=== PATIENT | male | born 1980 | race Caucasian/White ===

== ENCOUNTER 2022-03-21 15:24 | Inpatient (IN) | payer MEDICAID, SELFPAY ==
[2022-03-21 15:24] VITALS: BP 154/108; PULSE 78; RESP 18; TEMP 36.9; O2SAT 98
[2022-03-21 15:27] VITALS: BMI 23.5
[2022-03-21 15:46] LABS: Glucose Point of Care 337 mg/dL (70-110)
[2022-03-21] MEDS: carvedilol 25 mg Tablet PO (17:14)
[2022-03-21] MEDS: simethicone 80 mg Chew PO (17:14)
[2022-03-21] MEDS: BuSPIRONE 10 mg Tablet 15 MG PO (17:14)
[2022-03-21] MEDS: FUROsemide 40 mg Tablet PO (17:14)
[2022-03-21] MEDS: insulin lispro 100 unit/1 mL SUBCUT ×2 (18:22→21:04)
[2022-03-21 19:54] LABS: Glucose Point of Care 460 mg/dL (70-110)
[2022-03-21 20:48] VITALS: BP 144/90; PULSE 80; RESP 16; TEMP 36.4; O2SAT 97
[2022-03-21] MEDS: OLANZapine 5 mg ODT PO (21:03)
[2022-03-21] MEDS: quetiapine 100 mg Tablet 200 MG PO (21:03)
[2022-03-21] MEDS: gabapentin 300 mg Capsule PO (21:03)
[2022-03-21] MEDS: atorvastatin 40 mg Tablet PO (21:04)
--- NOTE | 2022-03-22 01:14 | PC.NURSE ---
PRN ADMIN Patient c/o of anxiety and had been agitated with nursing staff, requested something to help him calm down . PRN Zydis given as ordered with noted effectiveness.
[2022-03-22 06:00] VITALS: BP 123/84; PULSE 77; RESP 17; TEMP 36.5; O2SAT 99
[2022-03-22 06:29] LABS: Glucose Point of Care 302 mg/dL (70-110)
[2022-03-22] MEDS: meloxicam 7.5 mg tablet 15 MG PO (07:54)
[2022-03-22] MEDS: insulin lispro 100 unit/1 mL SUBCUT ×3 (07:54→17:31)
[2022-03-22] MEDS: simethicone 80 mg Chew PO ×2 (07:55→17:33)
[2022-03-22] MEDS: citalopram 20 mg Tablet 40 MG PO (07:55)
[2022-03-22] MEDS: gabapentin 300 mg Capsule PO ×3 (07:55→21:37)
[2022-03-22] MEDS: aspirin 81 mg EC Tablet PO (07:55)
[2022-03-22] MEDS: BuSPIRONE 10 mg Tablet 15 MG PO ×2 (07:56→17:32)
[2022-03-22] MEDS: FUROsemide 40 mg Tablet PO ×2 (07:57→17:32)
[2022-03-22] MEDS: insulin glargine 100 units/1 mL 15 UNIT SUBCUT (07:58)
[2022-03-22] MEDS: carvedilol 25 mg Tablet PO ×2 (07:58→17:34)
[2022-03-22 11:06] LABS: Glucose Point of Care 568 mg/dL (70-110)
[2022-03-22 11:15] LABS: Basophils % 0.6 %; Eosinophils # 0.1 10^3/uL (0.0-0.8); Eosinophils % 1.4 %; Hematocrit 33.6 % (42.0-52.0); Hemoglobin 10.5 g/dL (11.7-16.6); Lymphocytes # 1.6 10^3/uL (0.8-4.8); Lymphocytes % 23.4 %; Mean Corpuscular HGB Conc 31.3 g/dL (30.0-36.0); Mean Corpuscular Hemoglobin 26.6 pg (28.0-34.0); Mean Corpuscular Volume 85.1 fl (80-94); Mean Platelet Volume 10.8 fL (7.4-10.4); Monocytes # 0.5 10^3/uL (0.2-0.9); Monocytes % 8.2 %; Neutrophils # 4.36 10^3/uL (1.8-7.7); Neutrophils % 65.9 %; Nucleated Red Blood Cells % 0 %; Platelet Count 359 10^3/cmm (130-400); Red Blood Count 3.95 10^6/uL (4.1-5.3); Red Cell Distribution Width 14.6 % (12.1-15.1); White Blood Count 6.6 10^3/uL (4.0-10.0)
[2022-03-22 11:36] LABS: Anion Gap 12.6 (5-19); Blood Urea Nitrogen 21 mg/dL (6-20); Calcium 8.9 mg/dL (8.5-10.5); Carbon Dioxide 27 mmol/L (22-29); Chloride 97 mmol/L (98-107); Glomerular Filtration Rate 74.5 mL/min (90-130); Osmolality Calculated 305 mOsm/kg (285-295); Potassium 4.6 mmol/L (3.5-5.1); Sodium 132 mmol/L (136-145)
[2022-03-22 11:39] LABS: Glucose 607 mg/dL (65-115)
[2022-03-22 14:00] VITALS: BP 100/60; PULSE 83; RESP 16; TEMP 36.4; O2SAT 95
--- NOTE | 2022-03-22 14:09 | P.NPUHP_ITS ---
Providers/Chief Complaint Admitting Physician: Manpreet Jordan MD Chief Complaint: Psych HPI NPU History of Present Illness Stan Collazo is a 41 year old male who presented to the outside hospital with reports of struggling with type 1 diabetes, polysubstance abuse, coronary artery disease, anemia, and hypertension with suicidal ideation. He was endorsing worsening stressors in life and people not wanting him around. He is about jumping out of traffic to kill himself. Ultimately after significant dif ficulties to stabilize his blood sugar he was transferred to [facility] and admitted to the neuropsychiatric unit for definitive treatment of those issues. Upon admission he had significant blood sugar difficulties and hospitalist consult was requested for appropriate management of his medical comorbidities. He was a fairly poor historian and was not on much more than yes no answers to this engineering writer's questions. He was also somewhat somnolent and challenging to continue to arouse to get additional answers. He did endorse having significant psychiatric history with multiple inpatient hospitalizations in the past but none at this facility. He reports that suicidal ideation is generally the reason for him presenting. He endorses smoke about half pack of cigarettes a day but denied any additional active addiction. He is currently on medication. Review of the chart of the outside hospital does identify methamphetamine being positive on his UDS, as likely is leading to his level of hypersomnolence. He did have moments of unresponsiveness and did briefly get into the outside hospital. Psychiatric history: As above. Substance abuse history: As above. Due to continued irritability and difficulty with arousal additional history was not obtained. Meds NPU Home Medications Medication Instructions Recorded Confirmed Last Taken Type aspirin 81 mg tablet,delayed 81 mg PO DAILY 03/21/22 03/21/22 Unknown History release atorvastatin 40 mg tablet 40 mg PO BEDTIME 03/21/22 03/21/22 Unknown History buspirone 15 mg tablet 15 mg PO BID 03/21/22 03/21/22 Unknown History carvedilol 25 mg tablet 25 mg PO BID 03/21/22 03/21/22 Unknown History citalopram 40 mg tablet 40 mg PO DAILY 03/21/22 03/21/22 Unknown History furosemide 40 mg tablet 40 mg PO BID 03/21/22 03/21/22 Unknown History gabapentin 300 mg capsule 300 mg PO TID 03/21/22 03/21/22 Unknown History insulin glargine 100 unit/mL 15 unit SUBCUT DAILY 03/21/22 03/21/22 Unknown History subcutaneous solution (Lantus U-100 Insulin) meloxicam 15 mg tablet 15 mg PO DAILY 03/21/22 03/21/22 Unknown History quetiapine 200 mg tablet 200 mg PO BEDTIME 03/21/22 03/21/22 Unknown History simethicone 80 mg chewable tablet 80 mg PO BID 03/21/22 03/21/22 Unknown History Allergies Allergy/AdvReac Type Severity Reaction Status Date / Time amoxicillin Allergy ALGY-Hives Verified 03/21/22 16:21 tramadol Allergy ALGY-Hives Verified 03/21/22 16:21 PFSH NPU PFSH: Medical History (Updated 03/24/22 @ 08:27 by Manpreet Jordan MD) History of coronary artery disease History of placement of stent in LAD coronary artery Hypertension Type 1 diabetes mellitus Surgical History (Updated 03/22/22 @ 16:24 by Boni Momin MD) History of appendectomy History of cardiac catheterization Family History (Updated 03/22/22 @ 16:25 by Boni Momin MD) Mother Diabetes Social History (Updated 03/22/22 @ 16:25 by Boni Momin MD) Second hand smoke exposure: No Alcohol intake: never Substance/Drug Use: current Mental Status Exam MSE Comments: Is a well-nourished well-developed white male in scrubs with limited grooming and eye contact. No abnormal movements. Except for significant psychomotor retardation. Mostly uncooperative with exam in mild to moderate distress. Speech was limited and decreased rate and volume. Mood desc ribed as fine affect irritable. Thought process organized. Thought content: Patient denied homicidal ideation but endorsed suicidal ideation, there are no delusions reported or noted, he denied any auditory or visual hallucinations. Attention and concentration were limited and memory was unreliable for the most part but none were formally tested. He is arousable and oriented x3. Insight and judgment impaired impulse control impaired. Vitals/I&O/Wt Last Vital Signs Temp 97.5 F L 03/22/22 14:00 Pulse 83 03/22/22 14:00 Resp 16 03/22/22 14:00 BP 100/60 03/22/22 14:00 Pulse Ox 95 03/22/22 14:00 Weight last 48 hrs Weight 68.039 kg Data NPU : 03/22/22 11:07 03/22/22 11:07 A&P Assessment and plan (1) Hypertension: Status: Acute (2) History of coronary artery disease: Status: Acute (3) Type 1 diabetes mellitus: Status: Acute (4) Suicidal ideations: Status: Acute (5) Methamphetamine use disorder, severe: Status: Acute (6) Depression: Status: Acute Plan This is a 41-year-old white male with a long history of mental health and addiction issues who presents with significant morbidities and difficulties with his blood sugars endorsing suicidality with limited interaction. 1. Continue current medication. We will attempt to assess his adherence to medication and whether medication changes are in order or whether this is more to do with his methamphetamine addiction. 2. Continue every 15 minute checks for safety. 3. Encourage individual, group and milieu therapies. 4. Encourage sober living treatment after discharge at the highest level of care to which he is willing to commit. Involuntary Hold Information 96 Hour Hold: 96 Hour Involuntary Admission: No Attestations NPU Medical Necessity Statement*: Inpatient hospitalization is medically necessary and the clinically appropriate intervention at this time. We will monitor medication to make changes as indicated. Patient will be in the hospital for over two midnights. Likely length of stay 3 to 5 days. Coding Level of Care Code Acute Electrician Control Equipment for Pina Moncada Diagnoses Hypertension I10 History of coronary artery disease Z86.79 Type 1 diabetes mellitus E10.9 Suicidal ideations R45.851 Methamphetamine use disorder, severe F15.20 Depression F32.A
[2022-03-22 16:20] LABS: Glucose Point of Care 240 mg/dL (70-110)
--- NOTE | 2022-03-22 16:21 | PM.CONSULT ---
Providers/Reason For Consult Consulting Physician/Specialty*: Dr. Jordan Reason for Consult*: Type 1 diabetes mellitus Attending Physician: Manpreet Jordan MD History of Present Illness History of Present Illness Stan Collazo is a 41 year old male with a past medical history of type 1 diabetes mellitus, history of CAD status post stenting to LAD, history of methamphetamine abuse, history of suicidal ideation, who is a transfer to neuropsychiatric unit from outside hospital. Hospitalist team was called for diabetes management. At outside facility patient had a significant hypoglycemic event, blood sugars in the low 30s, with associated seizures and unresponsiveness requiring intubation mechanical ventilation, successfully extubated, he was managed with a sliding scale with Lantus 15 units once daily. Currently his blood sugars are over 500, his A1c was over 18 at outside facility. Recheck blood sugar is in the 240s, he is alert oriented following all commands. When I talk to him about his type 1 diabetes, he tells me he does not care about his diabetes and wants to be left alone,. Denies any polyuria, polydipsia, polyphagia. No lightheadedness, no dizziness. He has no complaints just wants to be left alone becomes very agitated on further questioning Medications/Allergies Home Medications Medication Instructions Recorded Confirmed Last Taken Type aspirin 81 mg tablet,delayed 81 mg PO DAILY 03/21/22 03/21/22 Unknown History release atorvastatin 40 mg tablet 40 mg PO BEDTIME 03/21/22 03/21/22 Unknown History buspirone 15 mg tablet 15 mg PO BID 03/21/22 03/21/22 Unknown History carvedilol 25 mg tablet 25 mg PO BID 03/21/22 03/21/22 Unknown History citalopram 40 mg tablet 40 mg PO DAILY 03/21/22 03/21/22 Unknown History furosemide 40 mg tablet 40 mg PO BID 03/21/22 03/21/22 Unknown History gabapentin 300 mg capsule 300 mg PO TID 03/21/22 03/21/22 Unknown History insulin glargine 100 unit/mL 15 unit SUBCUT DAILY 03/21/22 03/21/22 Unknown History subcutaneous solution (Lantus U-100 Insulin) meloxicam 15 mg tablet 15 mg PO DAILY 03/21/22 03/21/22 Unknown History quetiapine 200 mg tablet 200 mg PO BEDTIME 03/21/22 03/21/22 Unknown History simethicone 80 mg chewable tablet 80 mg PO BID 03/21/22 03/21/22 Unknown History Allergies Allergy/AdvReac Type Severity Reaction Status Date / Time amoxicillin Allergy ALGY-Hives Verified 03/21/22 16:21 tramadol Allergy ALGY-Hives Verified 03/21/22 16:21 Current Medications Generic Name Dose Route Start Last Admin Trade Name Wilyq PRN Reason Stop Dose Admin Aspirin 81 mg 03/22/22 09:00 03/22/22 07:55 Aspirin 81 Mg Ec Tablet PO 81 mg DAILY TRISTEN Administration Atorvastatin Calcium 40 mg 03/21/22 21:00 03/21/22 21:04 Atorvastatin 40 Mg Tablet PO 40 mg BEDTIME TRISTEN Administration Buspirone HCl 15 mg 03/21/22 18:00 03/22/22 07:56 Buspirone 10 Mg Tablet PO 15 mg BID TRISTEN Administration Carvedilol 25 mg 03/21/22 18:00 03/22/22 07:58 Carvedilol 25 Mg Tablet PO 25 mg BID TRISTEN Administration Citalopram Hydrobromide 40 mg 03/22/22 09:00 03/22/22 07:55 Citalopram 20 Mg Tablet PO 40 mg DAILY TRISTEN Administration Furosemide 40 mg 03/21/22 18:00 03/22/22 07:57 Furosemide 40 Mg Tablet PO 40 mg BID TRISTEN Administration Gabapentin 300 mg 03/21/22 21:00 03/22/22 14:49 Gabapentin 300 Mg Capsule PO 300 mg TID TRISTEN Administration Insulin Human Lispro 0 unit 03/21/22 18:00 03/22/22 12:32 Insulin Lispro 100 Unit/1 Ml SUBCUT 18 unit WM&BEDTIME TRISTEN Administration Protocol Meloxicam 15 mg 03/22/22 09:00 03/22/22 07:54 Meloxicam 7.5 Mg Tablet PO 15 mg DAILY TRISTEN Administration Olanzapine 5 mg 03/21/22 15:24 03/21/22 21:03 Olanzapine 5 Mg Odt PO 5 mg Q4H PRN Administration Agitation/Psychosis Quetiapine Fumarate 200 mg 03/21/22 21:00 03/21/22 21:03 Quetiapine 100 Mg Tablet PO 200 mg BEDTIME TRISTEN Administration Simethicone 80 mg 03/21/22 18:00 03/22/22 07:55 Simethicone 80 Mg Chew PO 80 mg BID TRISTEN Administration PFSH Acute PFSH: Medical History (Updated 03/22/22 @ 16:24 by Boni Momin MD) History of coronary artery disease History of placement of stent in LAD coronary artery Hypertension Type 1 diabetes mellitus Surgical History (Updated 03/22/22 @ 16:24 by Boni Momin MD) History of appendectomy History of cardiac catheterization Family History (Updated 03/22/22 @ 16:25 by Boni Momin MD) Mother Diabetes Social History (Updated 03/22/22 @ 16:25 by Boni Momin MD) Second hand smoke exposure: No Alcohol intake: never Substance/Drug Use: current Vitals/I&O/Wt Last Vital Signs Temp 97.5 F L 03/22/22 14:00 Pulse 83 03/22/22 14:00 Resp 16 03/22/22 14:00 BP 100/60 03/22/22 14:00 Pulse Ox 95 03/22/22 14:00 Weight last 48 hrs Weight 68.039 kg Physical Exam Const: COMMON NORMALS: no acute distress and patient oriented x3 HENMT: COMMON NORMALS: normocephalic HEAD & SCALP: normocephalic Neck/C-Spine: COMMON NORMALS: no JVD Resp: COMMON NORMALS: normal respiratory effort, No retractions, No use of accessory muscles and clear to auscultation bilaterally AUSCULTATION: clear to auscultation bilaterally Cardio: COMMON NORMALS: no JVD, regular rate, regular rhythm, S1 normal heart sound present and S2 normal heart sound present RATE: regular rate RHYTHM: regular rhythm HEART SOUNDS: S1 normal heart sound present and S2 normal heart sound present GI: COMMON NORMALS: Normal to inspection, nondistended, normoactive bowel sounds present, Soft to palpation, non-tender, No hepatosplenomegaly present, no masses and no bruits PALPATION: Yes Soft to palpation and Yes No hepatosplenomegaly present Extremity: COMMON NORMALS: capillary refill normal and no pedal edema Neuro: COMMON NORMALS: patient oriented x3 Psych: COMMON NORMALS: mental status grossly normal Skin: NARRATIVE SKIN EXAM: Diabetic ulcer, right foot, healing well, Data : 03/22/22 11:07 03/22/22 11:07 A&P Assessment and plan (1) Type 1 diabetes mellitus: Status: Acute Plan Type 1 diabetes mellitus, blood sugars over 500, sodium 132, potassium 4.6, anion gap 12.6 -Patient is on Lantus 15 Insa every morning -Change to high-dose sliding scale -Last blood sugar 240 -Continue high-dose sliding scale, continue Lantus -Of note patient suffered hypoglycemic episode with seizures, nonresponsiveness at outside facility requiring intubation, monitor blood sugars closely, avoid hypoglycemia -A1c over 18 Coding Level of Care Code Acute Product Blending Supervisor for Pina Moncada Diagnoses Type 1 diabetes mellitus E10.9
--- NOTE | 2022-03-22 21:11 | PC.NURSE ---
PATIENT REFUSED GLUCOSE CHECK AND INSULIN, STATES I WILL NOT TAKE INSULIN ANYMORE
[2022-03-22 21:22] VITALS: BP 110/68; PULSE 72; RESP 18; TEMP 36.4; O2SAT 96
[2022-03-22] MEDS: atorvastatin 40 mg Tablet PO (21:36)
[2022-03-22] MEDS: quetiapine 100 mg Tablet 200 MG PO (21:36)
[2022-03-23 06:00] VITALS: BP 108/70; PULSE 77; RESP 16; TEMP 36.5; O2SAT 94
[2022-03-23 06:06] LABS: Glucose Point of Care 223 mg/dL (70-110)
[2022-03-23] MEDS: citalopram 20 mg Tablet 40 MG PO (07:55)
[2022-03-23] MEDS: FUROsemide 40 mg Tablet PO ×2 (07:56→17:34)
[2022-03-23] MEDS: BuSPIRONE 10 mg Tablet 15 MG PO ×2 (07:56→17:34)
[2022-03-23] MEDS: gabapentin 300 mg Capsule PO ×3 (07:56→20:42)
[2022-03-23] MEDS: carvedilol 25 mg Tablet PO ×2 (07:56→17:34)
[2022-03-23] MEDS: aspirin 81 mg EC Tablet PO (07:56)
[2022-03-23] MEDS: simethicone 80 mg Chew PO ×2 (07:57→17:34)
[2022-03-23] MEDS: meloxicam 7.5 mg tablet 15 MG PO (07:58)
[2022-03-23] MEDS: OLANZapine 5 mg ODT PO ×2 (07:58→20:42)
[2022-03-23] MEDS: insulin glargine 100 units/1 mL 15 UNIT SUBCUT (09:26)
[2022-03-23] MEDS: insulin lispro 100 unit/1 mL SUBCUT ×4 (09:26→21:18)
[2022-03-23 11:56] LABS: Glucose Point of Care 503 mg/dL (70-110)
[2022-03-23 14:00] VITALS: BP 144/88; PULSE 89; RESP 18; TEMP 36.6
[2022-03-23] MEDS: hyDROXYzine 25 mg Capsule 50 MG PO (14:42)
[2022-03-23 16:31] LABS: Glucose Point of Care 539 mg/dL (70-110)
--- NOTE | 2022-03-23 16:46 | W.PM.NPUPNS ---
Subjective NPU Subjective: Patient presents today reporting that things are ok. He was a little more talkative. He still with very blood sugars and was switched to the high sliding scale. He reports that he is feeling a little better and it is unclear whether the medication being taken regularly and the impact of the methamphetamine use but we agreed we would work with the social work team to make sure he has appropriate follow-up that he had his medication and possibly things can begin to improve. Mental Status Exam MSE Comments: This is a well-nourished well-developed white male in scrubs with limited grooming and eye contact.? No abnormal movements.? Except for significant psychomotor retardation.? Mostly uncooperative with exam in mild to moderate distress.? Speech was limited and decreased rate and volume.? Mood described as okay, affect irritable.? Thought process organized.? Thought content: Patient denied homicidal ideation but endorsed suicidal ideation, there are no delusions reported or noted, he denied any auditory or visual hallucinations.? Attention and concentration were limited and memory was unreliable for the most part but none were formally tested.? He is arousable and oriented x3.? Insight and judgment impaired impulse control impaired. Vitals/I&O/Wt Last Vital Signs Temp 98 F 03/23/22 14:00 Pulse 89 03/23/22 14:00 Resp 18 03/23/22 14:00 BP 144/88 03/23/22 14:00 Pulse Ox 94 03/23/22 06:00 Data NPU : 03/22/22 11:07 03/22/22 11:07 A&P Assessment and plan (1) Depression: Status: Acute (2) Methamphetamine use disorder, severe: Status: Acute (3) Suicidal ideations: Status: Acute (4) Hypertension: Status: Acute (5) History of coronary artery disease: Status: Acute (6) Type 1 diabetes mellitus: Status: Acute Plan This is a 41-year-old white male with a long history of mental health and addiction issues who presents with significant morbidities and difficulties with his blood sugars endorsing suicidality with limited interaction. 1.? Continue current medication.? We will attempt to assess his adherence to medication and whether medication changes are in order or whether this is more to do with his methamphetamine addiction. 2.? Continue every 15 minute checks for safety. 3.? Encourage individual, group and milieu therapies. 4.? Encourage sober living treatment after discharge at the highest level of care to which he is willing to commit. 5. Appreciate hospitalist consult will follow for recommendations and follow as indicated. Involuntary Hold Information 96 Hour Hold: 96 Hour Involuntary Admission: No Attestations NPU Medical Necessity Statement*: Inpatient hospitalization is medically necessary and the clinically appropriate intervention at this time. We will monitor medication to make changes as indicated. Likely length of stay 2-4 days. Coding Level of Care Code Acute Health Services Coordinator for Lisa Fwd Diagnoses Depression F32.A Methamphetamine use disorder, severe F15.20 Suicidal ideations R45.851 Hypertension I10 History of coronary artery disease Z86.79 Type 1 diabetes mellitus E10.9
--- NOTE | 2022-03-23 17:13 | PC.SOCIAL ---
Patient did not attend group.
[2022-03-23] MEDS: calcium carbonate 500 mg Chew Tablet 1000 MG PO (17:34)
[2022-03-23] MEDS: atorvastatin 40 mg Tablet PO (20:42)
[2022-03-23] MEDS: quetiapine 100 mg Tablet 200 MG PO (20:42)
[2022-03-23 20:48] LABS: Glucose Point of Care 530 mg/dL (70-110)
[2022-03-23 21:38] VITALS: RESP 18
[2022-03-24 01:04] LABS: Glucose Point of Care 321 mg/dL (70-110)
--- NOTE | 2022-03-24 04:30 | PC.NURSE ---
PT UP EARLY IN SHIFT AND SHOWERED. HS ACCUCHECK WAS 530. INSULIN GIVEN PER SLIDING SCALE. DR NOTIFIED. FOLLOW UP ACCUCHECK 321. PT IRRITABLE BUT DIRECTABLE WELL COMPLIANT WITH CARE. HAS REMAINED IN BED RESTING WITH EYES CLOSED THROUGHOUT NIGHT.
[2022-03-24 06:00] VITALS: BP 99/72; PULSE 74; RESP 18; TEMP 36.4; O2SAT 99
--- NOTE | 2022-03-24 06:27 | PC.NURSE ---
AT APPROXIMATELY 0615 PT WAS IN BED, WAKEN FOR MORNING VS. BP LOW AT THAT TIME- 76/47. PT STOOD AND CAME TO NURSES STATION FOR COFFEE. HEALTH COMPANION WITH PT TO NURSES STATION. PT NOTED TO APPEAR UNSTEADY AND PALE. NURSES X2 TO PATEL. PT STATED HE FELT WEAK. STAFF ASSISTED PT TO SIT ON FLOOR AT THAT TIME. ACCU CHECK TAKEN- 341. PT GIVEN LARGE CUP OF WATER TO DRINK. COLOR RETURNED TO FACE WHILE SITTING AND SPEAKING WITH STAFF. BP CHECKED MANUALLY AND WAS 99/72. REPORTED FEELING BETTER AND WANTED TO RETURN TO BED. STAFF ESCORTED PT TO ROOM. PT RESTING ON BED AT THIS TIME WITHOUT FURTHER C/O.
[2022-03-24 06:41] LABS: Glucose Point of Care 341 mg/dL (70-110)
--- NOTE | 2022-03-24 08:47 | PC.NURSE ---
PATIENTS BP 88/55 HR 80. PATIENT REPORTS HIS BP AND BLOOD SUGAR ARE ARE ALWAYS UNPREDICTABLE COREG HELD DUE TO LOW BLOOD PRESSURE. PHYSICIAN AWARE
[2022-03-24] MEDS: meloxicam 7.5 mg tablet 15 MG PO (08:48)
[2022-03-24] MEDS: simethicone 80 mg Chew PO ×2 (08:48→17:23)
[2022-03-24] MEDS: gabapentin 300 mg Capsule PO ×3 (08:48→20:44)
[2022-03-24] MEDS: FUROsemide 40 mg Tablet PO (08:48)
[2022-03-24] MEDS: citalopram 20 mg Tablet 40 MG PO (08:49)
[2022-03-24] MEDS: BuSPIRONE 10 mg Tablet 15 MG PO ×2 (08:49→17:23)
[2022-03-24] MEDS: aspirin 81 mg EC Tablet PO (08:49)
[2022-03-24] MEDS: insulin glargine 100 units/1 mL 20 UNIT SUBCUT (08:50)
[2022-03-24] MEDS: insulin lispro 100 unit/1 mL SUBCUT ×3 (08:52→20:54)
[2022-03-24 11:01] LABS: Glucose Point of Care 549 mg/dL (70-110)
[2022-03-24 11:01] LABS: Glucose Point of Care > 600 mg/dL (70-110)
[2022-03-24 12:28] LABS: Glucose Point of Care 545 mg/dL (70-110)
[2022-03-24] MEDS: hyDROXYzine 25 mg Capsule 50 MG PO ×2 (12:49→17:22)
[2022-03-24] MEDS: insulin lispro 100 unit/1 mL 10 UNIT SUBCUT (12:49)
--- NOTE | 2022-03-24 12:56 | PC.NURSE ---
PRN MED PTGIVEN 50MG VISTARIL FOR ANXIETY, WILL CONTINUE TO MONITOR.
[2022-03-24 13:06] LABS: Glucose Point of Care 441 mg/dL (70-110)
[2022-03-24 13:41] VITALS: BP 94/61; PULSE 89; RESP 18; TEMP 36.5; O2SAT 96
--- NOTE | 2022-03-24 13:50 | PC.NURSE ---
PHYSICIAN ORDERED A HEPATITIS PANEL AND HIV TEST. PATIENT INFORMED AND CONSENTED TO HAVE THESE DONE.
[2022-03-24 14:18] LABS: Basophils # 0.1 10^3/uL (0.0-0.1); Basophils % 0.8 %; Eosinophils # 0.1 10^3/uL (0.0-0.8); Eosinophils % 1.6 %; Hematocrit 32.4 % (42.0-52.0); Hemoglobin 10.3 g/dL (11.7-16.6); Lymphocytes # 2.6 10^3/uL (0.8-4.8); Lymphocytes % 31.7 %; Mean Corpuscular HGB Conc 31.8 g/dL (30.0-36.0); Mean Corpuscular Hemoglobin 27.2 pg (28.0-34.0); Mean Corpuscular Volume 85.5 fl (80-94); Mean Platelet Volume 10.5 fL (7.4-10.4); Monocytes # 0.8 10^3/uL (0.2-0.9); Neutrophils # 4.67 10^3/uL (1.8-7.7); Neutrophils % 56.4 %; Nucleated Red Blood Cells % 0 %; Platelet Count 390 10^3/cmm (130-400); Red Blood Count 3.79 10^6/uL (4.1-5.3); Red Cell Distribution Width 14.4 % (12.1-15.1); White Blood Count 8.3 10^3/uL (4.0-10.0)
[2022-03-24 14:33] LABS: Glucose Point of Care 255 mg/dL (70-110)
[2022-03-24 14:35] LABS: Alanine Aminotransferase 23 U/L (0-41); Albumin Level 2.8 g/dL (3.5-5.2); Alkaline Phosphatase 131 IU/L (40-130); Anion Gap 15.9 (5-19); Aspartate Amino Transferase 15 U/L (0-40); Blood Urea Nitrogen 33 mg/dL (6-20); Calcium 8.7 mg/dL (8.5-10.5); Carbon Dioxide 24 mmol/L (22-29); Chloride 96 mmol/L (98-107); Globulin 3.7 g/dL (1.3-4.6); Glomerular Filtration Rate 61.5 mL/min (90-130); Glucose 295 mg/dL (65-115); Osmolality Calculated 292 mOsm/kg (285-295); Potassium 3.9 mmol/L (3.5-5.1); Sodium 132 mmol/L (136-145); Total Bilirubin 0.2 mg/dL (0.15-1.2); Total Protein 6.5 g/dL (6.6-8.7)
--- NOTE | 2022-03-24 14:57 | P.NPUPN_ITS ---
Subjective NPU Subjective: Patient presents today reporting that he is doing okay. He continued to be somewhat ambivalent about his addiction piece and continues to somewhat downplay those issues. We discussed the importance of his adherence to his medication and is agreeable to the medications that he is being prescribed at this point. We continue to really struggle with his blood sugar levels being in the area of 500. Once again discussed with the hospitalist who had increased his long-acting insulin and we are being aggressive with insulin scale to try to keep his blood sugars at a nondangerous level. He is working with the social work team for options for discharge. He reports he is eating and sleeping better. Mental Status Exam MSE Comments: This is a well-nourished well-developed white male in scrubs wi th limited grooming and eye contact.? No abnormal movements.? Except for some psychomotor retardation, that is improving. More cooperative with exam in milddistress.? Speech was more spontaneous and more normal rate and volume.? Mood described as okay, affect less irritable.? Thought process organized.? Thought content: Patient denied homicidal or suicidal ideation, there are no delusions reported or noted, he denied any auditory or visual hallucinations.? Attention and concentration were limited and memory was unreliable for the most part but none were formally tested.? He is arousable and oriented x3.? Insight and judgment improving impulse control impaired. Vitals/I&O/Wt Last Vital Signs Temp 97.7 F 03/24/22 13:41 Pulse 89 03/24/22 13:41 Resp 18 03/24/22 13:41 BP 94/61 03/24/22 13:41 Pulse Ox 96 03/24/22 13:41 Data NPU : 03/24/22 14:05 03/24/22 14:05 A&P Assessment and plan (1) Depression: Status: Acute (2) Methamphetamine use disorder, severe: Status: Acute (3) Suicidal ideations: Status: Acute (4) Type 1 diabetes mellitus: Status: Acute (5) Hypertension: Status: Acute (6) History of coronary artery disease: Status: Acute Plan This is a 41-year-old white male with a long history of mental health and addiction issues who presents with significant morbidities and difficulties with his blood sugars endorsing suicidality with limited interaction. 1.? Continue current medication.? We will attempt to assess his adherence to medication and whether medication changes are in order or whether this is more to do with his methamphetamine addiction. 2.? Continue every 15 minute checks for safety. 3.? Encourage individual, group and milieu therapies. 4.? Encourage sober living treatment after discharge at the highest level of care to which he is willing to commit. 5.? Appreciate hospitalist consult will follow for recommendations and follow as indicated. Involuntary Hold Information 96 Hour Hold: 96 Hour Involuntary Admission: No Attestations NPU Medical Necessity Statement*: Inpatient hospitalization is medically necessary and the clinically appropriate intervention at this time. We will monitor medication to make changes as indicated. Likely length of stay 2-4 days. Coding Level of Care Code Acute Senior Linux Unix Engineer for Pina Fwd Diagnoses Depression F32.A Methamphetamine use disorder, severe F15.20 Suicidal ideations R45.851 Type 1 diabetes mellitus E10.9 Hypertension I10 History of coronary artery disease Z86.79
--- NOTE | 2022-03-24 16:11 | P.PN_ITS ---
Subjective Subjective: Patient was seen this afternoon, his blood sugars have been in the high 500s, now down to the 250s, he tells me he is not feeling well, no chest pain, no palpitations, no lightheaded, dizziness, no nausea, no vomiting, Vitals/I&O/Wt Last Vital Signs Temp 97.7 F 03/24/22 13:41 Pulse 89 03/24/22 13:41 Resp 18 03/24/22 13:41 BP 94/61 03/24/22 13:41 Pulse Ox 96 03/24/22 13:41 Physical Exam Const: COMMON NORMALS: no acute distress and patient oriented x3 Neck/C-Spine: COMMON NORMALS: no JVD Resp: COMMON NORMALS: normal respiratory effort, No retractions, No use of accessory muscles and clear to auscultation bilaterally AUSCULTATION: clear to auscultation bilaterally Cardio: COMMON NORMALS: no JVD, regular rate, regular rhythm, S1 normal heart sound present and S2 normal heart sound present RATE: regular rate RHYTHM: regular rhythm HEART SOUNDS: S1 normal heart sound present and S2 normal heart sound present GI: COMMON NORMALS: Normal to inspection, nondistended, normoactive bowel sounds present, Soft to palpation, non-tender and No hepatosplenomegaly present PALPATION: Yes Soft to palpation and Yes No hepatosplenomegaly present Extremity: COMMON NORMALS: no pedal edema Neuro: COMMON NORMALS: patient oriented x3 Psych: COMMON NORMALS: mental status grossly normal Data : 03/24/22 14:05 03/24/22 14:05 A&P Assessment and plan (1) Depression: Status: Acute (2) Methamphetamine use disorder, severe: Status: Acute (3) Suicidal ideations: Status: Acute (4) Type 1 diabetes mellitus: Status: Acute (5) Hypertension: Status: Acute (6) History of coronary artery disease: Status: Acute Plan -Increase Lantus to 25 units in the morning, 10 units at bedtime -High-dose sliding scale -Advised to increase hydration hold Lasix hold Coreg -Advised nursing staff to monitor blood sugars closely as he has a history of hypoglycemia resulting in intubation and severe seizures Attestations Medical Necessity Statement*: Patient requires hospitalization, monitoring blood sugar Coding Level of Care Code Acute Residential Mortgage Manager for [facility] Diagnoses Depression F32.A Methamphetamine use disorder, severe F15.20 Suicidal ideations R45.851 Type 1 diabetes mellitus E10.9 Hypertension I10 History of coronary artery disease Z86.79
[2022-03-24 16:20] LABS: Glucose Point of Care 136 mg/dL (70-110)
[2022-03-24 20:24] LABS: Glucose Point of Care 293 mg/dL (70-110)
[2022-03-24] MEDS: quetiapine 100 mg Tablet 200 MG PO (20:44)
[2022-03-24] MEDS: atorvastatin 40 mg Tablet PO (20:44)
[2022-03-24] MEDS: insulin glargine 100 units/1 mL 10 UNIT SUBCUT (20:45)
[2022-03-24 21:09] VITALS: BP 110/68; PULSE 83; RESP 16; TEMP 36.5; O2SAT 93
[2022-03-24 22:55] LABS: Hepatitis B Core IgM Non-Reactive (Nonreactive); Hepatitis B Surface Antigen Non-Reactive (Nonreactive); Hepatitis C Virus Antibody Non-Reactive (Nonreactive)
[2022-03-25 00:17] LABS: HIV 1 & 2 Antibody Non-Reactive (Non-Reactiv); HIV 1 & 2 Antigen Non-Reactive (Non-Reactiv)
[2022-03-25 06:00] VITALS: BP 93/58; PULSE 70; RESP 18; TEMP 36.8; O2SAT 99
[2022-03-25 06:36] LABS: Glucose Point of Care 164 mg/dL (70-110)
[2022-03-25] MEDS: BuSPIRONE 10 mg Tablet 15 MG PO ×2 (08:41→20:45)
[2022-03-25] MEDS: citalopram 20 mg Tablet 40 MG PO (08:41)
[2022-03-25] MEDS: aspirin 81 mg EC Tablet PO (08:41)
[2022-03-25] MEDS: simethicone 80 mg Chew PO ×2 (08:41→18:42)
[2022-03-25] MEDS: insulin glargine 100 units/1 mL 25 UNIT SUBCUT (08:42)
[2022-03-25] MEDS: gabapentin 300 mg Capsule PO ×3 (08:42→20:09)
[2022-03-25] MEDS: OLANZapine 5 mg ODT PO ×2 (08:42→16:05)
[2022-03-25] MEDS: insulin lispro 100 unit/1 mL SUBCUT ×4 (10:14→20:44)
[2022-03-25] MEDS: haloperidol 5 mg Tablet PO (10:17)
[2022-03-25 11:23] LABS: Glucose Point of Care 596 mg/dL (70-110)
[2022-03-25 13:20] LABS: Glucose Point of Care 543 mg/dL (70-110)
[2022-03-25] MEDS: insulin lispro 100 unit/1 mL 15 UNIT SUBCUT (13:54)
[2022-03-25 14:00] VITALS: BP 125/77; PULSE 96; RESP 18; TEMP 36.7; O2SAT 97
--- NOTE | 2022-03-25 14:02 | PC.SOCIAL ---
Patient did not attend group.
[2022-03-25 15:26] LABS: Glucose Point of Care 340 mg/dL (70-110)
--- NOTE | 2022-03-25 15:35 | PC.PHAR ---
Dr. Momin has been informed of all Blood Sugar readings today and ordered insulin accordingly. 596 administered 20 units of Humalog. 543 administered 15 units Humalog.
--- NOTE | 2022-03-25 15:49 | P.NPUPN_ITS ---
Subjective NPU Subjective: He says that he is getting more anxious and the voices are getting worse. He says that he was on a higher dose of Seroquel previously with some of it being in the morning. He would like to add 100 mg in the morning. He also agreed to increase the BuSpar to 15 mg 3 times a day. Mental Status Exam MSE Comments: This is a well-nourished well-developed white male in scrubs with limited grooming and eye contact.? No abnormal movements.? Psychomotor activity is normal. More cooperative with exam in mild distress.? Speech was more spontaneous and more normal rate and volume.? Mood described as okay, affect less irritable.? Thought process organized.? Thought content: Patient denied homicidal or suicidal ideation, there are no delusions reported or noted, he reports auditory but no visual hallucinations.? Attention and concentration were limited and memory was unreliable for the most part but none were formally tested.? He is alert and oriented x3.? Insight and judgment improving impulse c ontrol impaired. Cognition: Patient Appearance: Appropriate Patient Orientation (long list): Person, Place, Name, Age and Birthday Comprehension Ability: No Impairment Hallucination Type: None Delusion Description: Not Present Thought Process: Appropriate Affect: Affect Description: Anxious Behavior: Patient Behavior: Appropriate Speech Pattern: Appropriate and Clear Vitals/I&O/Wt Last Vital Signs Temp 98.0 F 03/25/22 14:00 Pulse 96 03/25/22 14:00 Resp 18 03/25/22 14:00 BP 125/77 03/25/22 14:00 Pulse Ox 97 03/25/22 14:00 Data NPU : 03/24/22 14:05 03/24/22 14:05 A&P Assessment and plan (1) Depression: Status: Acute (2) Methamphetamine use disorder, severe: Status: Acute (3) Suicidal ideations: Status: Acute (4) Type 1 diabetes mellitus: Status: Acute (5) Hypertension: Status: Acute (6) History of coronary artery disease: Status: Acute Plan This is a 41-year-old white male with a long history of mental health and addiction issues who presents with significant morbidities and difficulties with his blood sugars endorsing suicidality with limited interaction. He reports auditory hallucinations and anxiety are increasing despite the methamphetamine getting out of his system. 1.? Continue current medication.? We will increase BuSpar and Seroquel. 3.? Encourage individual, group and milieu therapies. 4.? Encourage sober living treatment after discharge at the highest level of care to which he is willing to commit. 5.? Appreciate hospitalist consult will follow for recommendations and follow as indicated. Involuntary Hold Information 96 Hour Hold: 96 Hour Involuntary Admission: No Attestations NPU Medical Necessity Statement*: Inpatient hospitalization is medically necessary and the clinically appropriate intervention at this time. We will initiate medications and make changes as indicated. Coding Level of Care Code Acute Environmental Services Supervisor for [facility] Fwd Diagnoses Depression F32.A Methamphetamine use disorder, severe F15.20 Suicidal ideations R45.851 Type 1 diabetes mellitus E10.9 Hypertension I10 History of coronary artery disease Z86.79
[2022-03-25] MEDS: hyDROXYzine 25 mg Capsule 50 MG PO (16:05)
[2022-03-25 16:55] LABS: Glucose Point of Care 292 mg/dL (70-110)
[2022-03-25 19:45] LABS: Glucose Point of Care 180 mg/dL (70-110)
[2022-03-25] MEDS: atorvastatin 40 mg Tablet PO (20:09)
[2022-03-25] MEDS: quetiapine 100 mg Tablet 200 MG PO (20:09)
[2022-03-25] MEDS: trazodone 50 mg Tablet PO (20:09)
[2022-03-25 20:44] VITALS: BP 120/71; PULSE 91; RESP 18; TEMP 36.6; O2SAT 98
[2022-03-25] MEDS: insulin glargine 100 units/1 mL 15 UNIT SUBCUT (20:44)
[2022-03-26] MEDS: quetiapine 100 mg Tablet PO (05:21)
[2022-03-26 07:33] LABS: Glucose Point of Care 152 mg/dL (70-110)
[2022-03-26] MEDS: gabapentin 300 mg Capsule PO ×3 (08:31→20:30)
[2022-03-26] MEDS: BuSPIRONE 10 mg Tablet 15 MG PO ×3 (08:31→20:29)
[2022-03-26] MEDS: simethicone 80 mg Chew PO ×2 (08:31→20:30)
[2022-03-26] MEDS: aspirin 81 mg EC Tablet PO (08:31)
[2022-03-26] MEDS: citalopram 20 mg Tablet 40 MG PO (08:31)
[2022-03-26] MEDS: insulin lispro 100 unit/1 mL SUBCUT ×3 (08:33→16:53)
[2022-03-26] MEDS: insulin glargine 100 units/1 mL 30 UNIT SUBCUT (08:34)
[2022-03-26] MEDS: OLANZapine 5 mg ODT PO (10:57)
--- NOTE | 2022-03-26 11:00 | PC.NURSE ---
Patient at the nurses station voicing increasing anxiety. Zydis 5 mg sl given for this.
[2022-03-26 11:38] LABS: Glucose Point of Care 201 mg/dL (70-110)
[2022-03-26] MEDS: hyDROXYzine 25 mg Capsule 50 MG PO (12:20)
--- NOTE | 2022-03-26 12:20 | PC.NURSE ---
Addendum entered by Christine Booth LPN 03/26/22 18:12: late entry prn med effective no further c/o anxiety, pt resting quietly in bed in room Original Note: PRN VISTARIL 50 MG GIVEN PO PER PT C/O ANXIETY. PT YELLING AND CURSING AT NURSES STATION ABOUT WANTING MORE FOOD TO EAT PT IS DIABETIC, STAFF ATTEMPTS TO EDUCATE ON PROPER MONITORING OF CALORIE INTAKE TO HELP BALANCE BLOOD SUGARS.
--- NOTE | 2022-03-26 13:32 | P.NPUPN_ITS ---
Subjective NPU Subjective: He says that he is doing better today. The voices are more quiet and he is less anxious. He did not sleep well the last couple of nights. He says that he does not have a place to go and was hoping that the social workers will talk with him and help him find an inpatient treatment program for his methamphetamine addiction. Mental Status Exam MSE Comments: This is a well-nourished well-developed white male in scrubs with limited grooming and eye contact.? No abnormal movements.? Psychomotor ac tivity is normal. More cooperative with exam in mild distress.? Speech was more spontaneous and more normal rate and volume.? Mood described as okay, affect less irritable.? Thought process organized.? Thought content: Patient denied homicidal or suicidal ideation, there are no delusions reported or noted, he reports auditory but they are improving, no visual hallucinations.? Attention and concentration were limited and memory was unreliable for the most part but none were formally tested.? He is alert and oriented x3.? Insight and judgment improving impulse control impaired. Cognition: Patient Appearance: Appropriate Patient Orientation (long list): Person, Place, Name, Age and Birthday Comprehension Ability: No Impairment Hallucination Type: None Delusion Description: Not Present Thought Process: Appropriate Affect: Affect Description: Calm Behavior: Patient Behavior: Angry and Demanding Speech Pattern: Includes Profanity, Pressured and Rambling Vitals/I&O/Wt Last Vital Signs Temp 97.8 F 03/25/22 20:44 Pulse 91 03/25/22 20:44 Resp 18 03/25/22 20:44 BP 120/71 03/25/22 20:44 Pulse Ox 98 03/25/22 20:44 Data NPU : 03/24/22 14:05 03/24/22 14:05 A&P Assessment and plan (1) Depression: Status: Acute (2) Methamphetamine use disorder, severe: Status: Acute (3) Suicidal ideations: Status: Acute (4) Type 1 diabetes mellitus: Status: Acute (5) Hypertension: Status: Acute (6) History of coronary artery disease: Status: Acute Plan This is a 41-year-old white male with a long history of mental health and ad diction issues who presents with significant morbidities and difficulties with his blood sugars endorsing suicidality with limited interaction. He reports auditory hallucinations and anxiety are increasing despite the methamphetamine getting out of his system. 1.? Continue current medication.? We will increase BuSpar and Seroquel. 3.? Encourage individual, group and milieu therapies. 4.? Encourage sober living treatment after discharge at the highest level of care to which he is willing to commit. 5.? Appreciate hospitalist consult will follow for recommendations and follow as indicated. Involuntary Hold Information 96 Hour Hold: 96 Hour Involuntary Admission: No Attestations NPU Medical Necessity Statement*: Inpatient hospitalization is medically necessary and the clinically appropriate intervention at this time. We will initiate medications and make changes as indicated. Coding Level of Care Code Acute Employment Specialist for [facility] Fwd Diagnoses Depression F32.A Methamphetamine use disorder, severe F15.20 Suicidal ideations R45.851 Type 1 diabetes mellitus E10.9 Hypertension I10 History of coronary artery disease Z86.79
[2022-03-26 14:00] VITALS: BP 139/86; PULSE 101; RESP 18; TEMP 36.4; O2SAT 97
[2022-03-26 14:26] LABS: Glucose Point of Care 251 mg/dL (70-110)
[2022-03-26] MEDS: haloperidol 5 mg Tablet PO (14:31)
[2022-03-26] MEDS: nicotine 2 mg Gum BUCCAL ×2 (15:32→17:41)
[2022-03-26 16:22] LABS: Glucose Point of Care 224 mg/dL (70-110)
[2022-03-26 20:13] LABS: Glucose Point of Care 77 mg/dL (70-110)
[2022-03-26 20:28] VITALS: BP 117/76; PULSE 101; RESP 18; O2SAT 97
[2022-03-26] MEDS: quetiapine 100 mg Tablet 200 MG PO (20:29)
[2022-03-26] MEDS: atorvastatin 40 mg Tablet PO (20:30)
[2022-03-26] MEDS: acetaminophen 325 mg Tablet 650 MG PO (20:53)
[2022-03-27] MEDS: quetiapine 100 mg Tablet PO (05:37)
[2022-03-27 06:00] VITALS: BP 135/78; PULSE 91; RESP 17; O2SAT 98
[2022-03-27 07:03] LABS: Glucose Point of Care 210 mg/dL (70-110)
[2022-03-27] MEDS: gabapentin 300 mg Capsule PO ×3 (08:33→21:00)
[2022-03-27] MEDS: citalopram 20 mg Tablet 40 MG PO (08:33)
[2022-03-27] MEDS: BuSPIRONE 10 mg Tablet 15 MG PO ×3 (08:33→19:52)
[2022-03-27] MEDS: aspirin 81 mg EC Tablet PO (08:33)
[2022-03-27] MEDS: simethicone 80 mg Chew PO ×3 (08:33→19:52)
[2022-03-27] MEDS: insulin lispro 100 unit/1 mL SUBCUT ×3 (08:35→16:26)
[2022-03-27] MEDS: insulin glargine 100 units/1 mL 30 UNIT SUBCUT (08:35)
[2022-03-27] MEDS: nicotine 2 mg Gum BUCCAL ×3 (09:22→19:53)
[2022-03-27 10:18] LABS: Glucose Point of Care 218 mg/dL (70-110)
[2022-03-27] MEDS: hyDROXYzine 25 mg Capsule 50 MG PO ×2 (10:58→17:34)
[2022-03-27 11:22] LABS: Glucose Point of Care 163 mg/dL (70-110)
--- NOTE | 2022-03-27 11:31 | P.NPUPN_ITS ---
Subjective NPU Subjective: He said that he did not sleep very well last night. He said that he thought he had been sleeping okay with the Seroquel 200 mg but in retrospect he thinks maybe he is not. He is no longer seeing visual hallucinations but continues auditory hallucinations but they are decreased. He says that they are only mumbling now and he cannot understand what they say. He agreed to change the Seroquel to bedtime 300 mg to see if that would help him sleep better but continued to control the auditory hallucinations. Mental Status Exam MSE Comments: This is a well-nourished well-developed white male in scrubs with limited grooming and eye contact.? No abnormal movements.? Psychomotor activity is normal. More cooperative with exam in mild distress.? Speech was more spontaneous and more normal rate and volume.? Mood described as okay, affect euthymic.? Thought process organized.? Thought content: Patient denied homicidal or suicidal ideation, there are no delusions reported or noted, he reports auditory but they are improving, no visual hallucinations.? Attention and concentration were limited and memory was unreliable for the most part but none were formally tested.? He is alert and oriented x3.? Insight and judgment improving impulse control impaired. Cognition: Patient Appearance: Disheveled/Poor Hygiene Patient Orientation (long list): Person, Place, Name, Age and Birthday Comprehension Ability: No Impairment Hallucination Type: None Delusion Description: Not Present Thought Process: Appropriate Affect: Affect Description: Calm Behavior: Patient Behavior: Cooperative Speech Pattern: Clear Vitals/I&O/Wt Last Vital Signs Temp 97.5 F L 03/26/22 14:00 Pulse 91 03/27/22 06:00 Resp 17 03/27/22 06:00 BP 135/78 03/27/22 06:00 Pulse Ox 98 03/27/22 06:00 Data NPU : 03/24/22 14:05 03/24/22 14:05 A&P Assessment and plan (1) Depression: Status: Acute (2) Methamphetamine use disorder, severe: Status: Acute (3) Suicidal ideations: Status: Acute (4) Type 1 diabetes mellitus: Status: Acute (5) Hypertension: Status: Acute (6) History of coronary artery disease: Status: Acute Plan This is a 41-year-old white male with a long history of mental health and addiction issues who presents with significant morbidities and difficulties with his blood sugars endorsing suicidality with limited interaction. He reports auditory hallucinations and anxiety are increasing despite the methamphetamine getting out of his system. 1.? Continue current medication.? BuSpar was increased to 15 mg 3 times daily. Change Seroquel to 300 mg at bedtime. 3.? Encourage individual, group and milieu therapies. 4.? Encourage sober living treatment after discharge at the highest level of care to which he is willing to commit. 5.? Appreciate hospitalist consult will follow for recommendations and follow as indicated. Involuntary Hold Information 96 Hour Hold: 96 Hour Involuntary Admission: No Attestations NPU Medical Necessity Statement*: Inpatient hospitalization is medically necessary and the clinically appropriate intervention at this time. We will initiate medications and make changes as indicated. Coding Level of Care Code Acute Correctional Case Records Supervisor for [facility] Diagnoses Depression F32.A Methamphetamine use disorder, severe F15.20 Suicidal ideations R45.851 Type 1 diabetes mellitus E10.9 Hypertension I10 History of coronary artery disease Z86.79
[2022-03-27 14:00] VITALS: BP 135/79; PULSE 93; RESP 17; TEMP 36.8; O2SAT 99
[2022-03-27 16:16] LABS: Glucose Point of Care 271 mg/dL (70-110)
--- NOTE | 2022-03-27 16:47 | PC.NURSE ---
PRN MYLICON 80 MG CHEWABLE TAB GIVEN PO PER PT C/O GAS
--- NOTE | 2022-03-27 17:35 | PC.NURSE ---
PRN VISTARIL 50 MG GIVEN PO PER PT C/O STATED ANXIETY
[2022-03-27] MEDS: atorvastatin 40 mg Tablet PO (19:52)
[2022-03-27] MEDS: quetiapine 100 mg Tablet 300 MG PO (19:52)
[2022-03-27 19:55] LABS: Glucose Point of Care 106 mg/dL (70-110)
[2022-03-27 20:43] VITALS: BP 155/82; PULSE 103; RESP 20; TEMP 36.6; O2SAT 98
[2022-03-28 06:00] VITALS: BP 126/83; PULSE 101; RESP 18; TEMP 36.6; O2SAT 97
[2022-03-28] MEDS: aspirin 81 mg EC Tablet PO (07:41)
[2022-03-28] MEDS: citalopram 20 mg Tablet 40 MG PO (07:41)
[2022-03-28] MEDS: BuSPIRONE 10 mg Tablet 15 MG PO ×3 (07:42→21:07)
[2022-03-28] MEDS: gabapentin 300 mg Capsule PO ×3 (07:42→21:08)
[2022-03-28] MEDS: simethicone 80 mg Chew PO ×3 (07:42→21:24)
[2022-03-28] MEDS: acetaminophen 325 mg Tablet 650 MG PO (07:58)
[2022-03-28 08:26] LABS: Glucose Point of Care 364 mg/dL (70-110)
[2022-03-28] MEDS: insulin lispro 100 unit/1 mL SUBCUT ×2 (08:37→17:15)
[2022-03-28] MEDS: insulin glargine 100 units/1 mL 30 UNIT SUBCUT (08:41)
--- NOTE | 2022-03-28 09:34 | PC.NURSE ---
WAS CALM AND COOPERATIVE DURING ASSESSMENT. DENIES SI/HI AND AVH AT THIS TIME. DOES STATE HE HEARS MUMBLING AND CHATTERING AT TIMES AND HE IS UNABLE TO MAKE OUT WHAT THEY SAY. DENIES VH. REPORTS HE SLEPT WELL. AFTER ASSESSMENT DID BECOME ANGRY AND HAVE AN OUTBURST DUE TO PHYSICIST ASTROPHYSICS TAKING FOOD OUT OF HIS ROOM. WAS ABLE TO VERBALLY DESCALATE. THIS RN DID EDUCATE ON NOT HAVING FOOD IN ROOM BUT WOULD NOT RESPOND TO EDUCATION.
--- NOTE | 2022-03-28 09:46 | P.NPUPN_ITS ---
Subjective NPU Subjective: He says that the Seroquel 300 mg at bedtime is helping his sleep better. He complains of some shoulder pain which he says is throbbing. He took some Tylenol but it did not help much. He felt like it kept him from getting as good night sleep as he could have. He wanted to take some ibuprofen for that. I talked with him more about his appetite. He is always wanting snacks and his blood sugar is frequently high. He says that he has always been hungry. He is adamant that the Seroquel has not changed his appetite. He says that he does not get a really good breakfast and he is hungry all day. He agreed to try some Metamucil and see if that would help curb his appetite. He wants to go to a 30- day residential treatment program and the delinquency prevention social worker staff are looking into that for him. He is on probation and he is sure that if he does not go to an residential program he will relapse and start using drugs again. He needs to do everything right so he can get off of probation in June. Mental Status Exam MSE Comments: This is a well-nourished well-developed white male in scrubs wi th limited grooming and eye contact.? No abnormal movements.? Psychomotor activity is normal. More cooperative with exam in no distress.? Speech was more spontaneous and more normal rate and volume.? Mood described as okay, affect euthymic.? Thought process organized.? Thought content: Patient denied homicidal or suicidal ideation, there are no delusions reported or noted, he reports auditory but they are improving, no visual hallucinations.? Attention and concentration were limited and memory was reliable for the most part but none were formally tested.? He is alert and oriented x3.? Insight and judgment improving impulse control impaired. Cognition: Patient Appearance: Disheveled/Poor Hygiene Patient Orientation (long list): Person, Place, Name, Age and Birthday Comprehension Ability: No Impairment Hallucination Type: Auditory Delusion Description: Not Present Thought Process: Appropriate Affect: Affect Description: Appropriate and Calm Behavior: Patient Behavior: Irritable Speech Pattern: Clear, Inappropriate and Includes Profanity Vitals/I&O/Wt Last Vital Signs Temp 98 F 03/28/22 06:00 Pulse 101 H 03/28/22 06:00 Resp 18 03/28/22 06:00 BP 126/83 03/28/22 06:00 Pulse Ox 97 03/28/22 06:00 Weight last 48 hrs Weight 77.02 kg Data NPU : 03/24/22 14:05 03/24/22 14:05 A&P Assessment and plan (1) Depression: Status: Acute (2) Methamphetamine use disorder, severe: Status: Acute (3) Suicidal ideations: Status: Acute (4) Type 1 diabetes mellitus: Status: Acute (5) Hypertension: Status: Acute (6) History of coronary artery disease: Status: Acute Plan This is a 41-year-old white male with a long history of mental health and addiction issues who presents with significant morbidities and difficulties with his blood sugars endorsing suicidality with limited interaction. He reports auditory hallucinations and anxiety are increasing despite the methamphetamine getting out of his system. 1.? Continue current medication.? BuSpar was increased to 15 mg 3 times daily. Change Seroquel to 300 mg at bedtime. 3.? Encourage individual, group and milieu therapies. 4.? Encourage sober living treatment after discharge at the highest level of care to which he is willing to commit. 5.? Appreciate hospitalist consult will follow for recommendations and follow as indicated. Involuntary Hold Information 96 Hour Hold: 96 Hour Involuntary Admission: No Attestations NPU Medical Necessity Statement*: Inpatient hospitalization is medically necessary and the clinically appropriate intervention at this time. We will initiate medications and make changes as indicated. Coding Level of Care Code Acute Cloth Cutting Machine Operator for [facility] Diagnoses Depression F32.A Methamphetamine use disorder, severe F15.20 Suicidal ideations R45.851 Type 1 diabetes mellitus E10.9 Hypertension I10 History of coronary artery disease Z86.79
[2022-03-28 11:16] LABS: Glucose Point of Care 86 mg/dL (70-110)
[2022-03-28] MEDS: psyllium powder Pkt 1 PACKET PO (11:18)
[2022-03-28] MEDS: hyDROXYzine 25 mg Capsule 50 MG PO (12:24)
[2022-03-28 13:38] VITALS: BP 144/79; PULSE 83; RESP 16; TEMP 36.8; O2SAT 96
[2022-03-28] MEDS: ibuprofen 800 mg tablet PO (15:53)
[2022-03-28 17:01] LABS: Glucose Point of Care 241 mg/dL (70-110)
[2022-03-28 20:32] LABS: Glucose Point of Care 69 mg/dL (70-110)
[2022-03-28] MEDS: atorvastatin 40 mg Tablet PO (21:08)
[2022-03-28] MEDS: quetiapine 100 mg Tablet 300 MG PO (21:08)
[2022-03-28 21:41] VITALS: BP 150/91; PULSE 101; RESP 16; TEMP 36.7; O2SAT 98
[2022-03-28 23:31] LABS: Glucose Point of Care 238 mg/dL (70-110)
[2022-03-29 06:00] VITALS: BP 126/78; PULSE 98; RESP 20; TEMP 36.7; O2SAT 100
[2022-03-29 07:12] LABS: Glucose Point of Care 154 mg/dL (70-110)
[2022-03-29] MEDS: aspirin 81 mg EC Tablet PO (07:39)
[2022-03-29] MEDS: insulin glargine 100 units/1 mL 30 UNIT SUBCUT (07:39)
[2022-03-29] MEDS: insulin lispro 100 unit/1 mL SUBCUT ×3 (07:39→20:51)
[2022-03-29] MEDS: simethicone 80 mg Chew PO ×2 (07:39→20:36)
[2022-03-29] MEDS: citalopram 20 mg Tablet 40 MG PO (07:40)
[2022-03-29] MEDS: gabapentin 300 mg Capsule PO ×3 (07:40→20:36)
[2022-03-29] MEDS: BuSPIRONE 10 mg Tablet 15 MG PO ×3 (07:40→20:36)
[2022-03-29] MEDS: psyllium powder Pkt 1 PACKET PO (09:26)
[2022-03-29] MEDS: nicotine 2 mg Gum BUCCAL ×3 (09:26→19:12)
[2022-03-29] MEDS: haloperidol 5 mg Tablet PO (09:26)
--- NOTE | 2022-03-29 09:26 | PC.NURSE ---
PRN HALDOL 5 MG GIVEN PO PER PT C/O STATED VOICES DOES NOT APPEAR TO BE RESPONDING TO INTERNAL STIMULI
[2022-03-29 11:24] LABS: Glucose Point of Care 215 mg/dL (70-110)
--- NOTE | 2022-03-29 11:39 | W.PM.NPUPNS ---
Subjective NPU Subjective: He said that he did not sleep very well last night with the Seroquel 300 mg. He said that he did not sleep during the day and does not understand why he did not sleep. He wanted to add some trazodone to the Seroquel to help him sleep. He said that the Metamucil yesterday did not seem to do anything for his appetite but when he took it after breakfast it did seem to squelch his appetite for a few hours. He would like to take it after lunch as well. He is still confident that the Seroquel has not increased his appetite. Mental Status Exam MSE Comments: This is a well-nourished well-developed white male in scrubs with limited grooming and eye contact.? No abnormal movements.? Psychomotor activity is normal. Pleasant and cooperative with exam in no distress.? Speech was normal rate and volume.? Mood good, affect euthymic.? Thought process organized.? Thought content: Patient denied homicidal or suicidal ideation, there are no delusions reported or noted, he reports auditory but they are improving, no visual hallucinations.? Attention and concentration were limited and memory was reliable for the most part but none were formally tested.? He is alert and oriented x3.? Insight and judgment improving impulse control impaired. Cognition: Patient Appearance: Disheveled/Poor Hygiene Patient Orientation (long list): Person, Place, Name, Age and Birthday Comprehension Ability: No Impairment Hallucination Type: None Delusion Description: Not Present Thought Process: Appropriate Affect: Affect Description: Guarded Behavior: Patient Behavior: Demanding and Intrusive Speech Pattern: Pressured and Rambling Vitals/I&O/Wt Last Vital Signs Temp 98.1 F 03/29/22 06:00 Pulse 98 03/29/22 06:00 Resp 20 H 03/29/22 06:00 BP 126/78 03/29/22 06:00 Pulse Ox 100 03/29/22 06:00 Weight last 48 hrs Weight 77.02 kg Data NPU : 03/24/22 14:05 03/24/22 14:05 A&P Assessment and plan (1) Depression: Status: Acute (2) Methamphetamine use disorder, severe: Status: Acute (3) Suicidal ideations: Status: Acute (4) Type 1 diabetes mellitus: Status: Acute (5) Hypertension: Status: Acute (6) History of coronary artery disease: Status: Acute Plan This is a 41-year-old white male with a long history of mental health and addiction issues who presents with significant morbidities and difficulties with his blood sugars endorsing suicidality with limited interaction. He reports auditory hallucinations and anxiety are increasing despite the methamphetamine getting out of his system. 1.? Continue current medication.? BuSpar was increased to 15 mg 3 times daily. Change Seroquel to 300 mg at bedtime. Increase Metamucil to after breakfast and lunch. 3.? Encourage individual, group and milieu therapies. 4.? Encourage sober living treatment after discharge at the highest level of care to which he is willing to commit. 5.? Appreciate hospitalist consult will follow for recommendations and follow as indicated. Involuntary Hold Information 96 Hour Hold: 96 Hour Involuntary Admission: No Attestations NPU Medical Necessity Statement*: Inpatient hospitalization is medically necessary and the clinically appropriate intervention at this time. We will initiate medications and make changes as indicated. Coding Level of Care Code Acute Drilling Assistant for [facility] Diagnoses Depression F32.A Methamphetamine use disorder, severe F15.20 Suicidal ideations R45.851 Type 1 diabetes mellitus E10.9 Hypertension I10 History of coronary artery disease Z86.79
[2022-03-29] MEDS: hyDROXYzine 25 mg Capsule 50 MG PO (12:11)
--- NOTE | 2022-03-29 12:13 | PC.NURSE ---
Patient states I need something for my anxiety now. Patient is calling staff member a elmer albertsch. Patient punched door to psych unit and fire extinguisher.
[2022-03-29 14:00] VITALS: BP 114/88; PULSE 107; RESP 17; TEMP 37.1; O2SAT 98
--- NOTE | 2022-03-29 14:13 | PC.NURSE ---
Physician notified on patients refusal of carb consistent diet and aggressive behavior due to being on the diet. Physician orders received. Patient extensively educated on the effects of a regular diet on his diabetes. Patient states I don't care. I don't want insulin. I am hungry. Patient became verbally aggressive with staff and started punching the door and fire alarm. Staff reported patient was grabbing food out of the meal cart by the handfuls.
--- NOTE | 2022-03-29 14:20 | W.PM.NPUH&PS ---
Providers/Chief Complaint Admitting Physician: Manpreet Jordan MD Chief Complaint: Psych HPI NPU History of Present Illness Stan Collazo is a 41 year old male who was admitted to our emergency department with the following report: HPI: [46]yo patient w/ hx of psychosis BIBP for acute agitation and psychosis.? Patient earlier today wonder to a park to multiple family that he was can kill them.? In addition later today, patient was found in a stranger's home threatening to harm the stranger.? Police was called and patient was brought to the emergency room. On arrival, the patient is AAOx3 and cooperative with my evaluation. No focal complaints of chest pain, shortness of breath, palpitations, N/V, focal GI/ complaints. Currently denies SI. No complaints of hallucinations. Onset: unknown Duration: ongoing Location: home Severity: severe Associated symptoms: Deny chest pain, dyspnea, nausea, rash, palpitations or vomiting Affidavit from police very confused, not responding well to questions, combative, saying he is speaking to people through devices in the [place].? Speaking to people who are not there.? Made statements of hurting me, resisting arrest, talking about killing others.? Vulgar language at public park. A different affidavit from the police: Very noncompliant, talking to people in [place], people beside him who are not there. There is an ex parte order on the chart with the most recent order on February 23, 2022.? The petitioner said he shows up high on drugs, says he is watching no comes right at dark.? The second time he came to the door when my was gone and me and my 1-year-old and 5-year-old were home.? He was acting like he was needed help and wanted me to open the door it appears that these instances were from August of last year. He was admitted to the neuropsychiatry unit for definitive treatment of these issues. He says that he has been stressed out recently. He has put all of his family's money into a restaurant that is plant-based [facility] and [place]. He said that he has been working hard on it and not getting sleep. They already have the food ordered and the restaurant needs to open next week or his family will be destitute. He denies making any statements that he was going to kill any people. He denies any auditory hallucinations. He denies being combative with police. He does not know why they would make those things up. He says he did knock on the door of the wrong house but denies making any statements for threatening anyone. He says that other than being stressed out he is perfectly fine. He was admitted to this unit in October with the following discharge summary: Meds NPU Home Medications Medication Instructions Recorded Confirmed Last Taken Type aspirin 81 mg tablet,delayed 81 mg PO DAILY 03/21/22 03/21/22 Unknown History release atorvastatin 40 mg tablet 40 mg PO BEDTIME 03/21/22 03/21/22 Unknown History buspirone 15 mg tablet 15 mg PO BID 03/21/22 03/21/22 Unknown History carvedilol 25 mg tablet 25 mg PO BID 03/21/22 03/21/22 Unknown History citalopram 40 mg tablet 40 mg PO DAILY 03/21/22 03/21/22 Unknown History furosemide 40 mg tablet 40 mg PO BID 03/21/22 03/21/22 Unknown History gabapentin 300 mg capsule 300 mg PO TID 03/21/22 03/21/22 Unknown History insulin glargine 100 unit/mL 15 unit SUBCUT DAILY 03/21/22 03/21/22 Unknown History subcutaneous solution (Lantus U-100 Insulin) meloxicam 15 mg tablet 15 mg PO DAILY 03/21/22 03/21/22 Unknown History quetiapine 200 mg tablet 200 mg PO BEDTIME 03/21/22 03/21/22 Unknown History simethicone 80 mg chewable tablet 80 mg PO BID 03/21/22 03/21/22 Unknown History Allergies Allergy/AdvReac Type Severity Reaction Status Date / Time amoxicillin Allergy ALGY-Hives Verified 03/21/22 16:21 tramadol Allergy ALGY-Hives Verified 03/21/22 16:21 PFS NPU PFS: Medical History (Updated 03/24/22 @ 08:27 by Manpreet Jordan MD) History of coronary artery disease History of placement of stent in LAD coronary artery Hypertension Type 1 diabetes mellitus Surgical History (Updated 03/22/22 @ 16:24 by Boni Momin MD) History of appendectomy History of cardiac catheterization Family History (Updated 03/22/22 @ 16:25 by Boni Momin MD) Mother Diabetes Social History (Updated 03/22/22 @ 16:25 by Boni Momin MD) Second hand smoke exposure: No Alcohol intake: never Substance/Drug Use: current Vitals/I&O/Wt Last Vital Signs Temp 98.8 F 03/29/22 14:00 Pulse 107 H 03/29/22 14:00 Resp 17 03/29/22 14:00 BP 114/88 03/29/22 14:00 Pulse Ox 98 03/29/22 14:00 Weight last 48 hrs Weight 77.02 kg Data NPU : 03/24/22 14:05 03/24/22 14:05 Involuntary Hold Information 96 Hour Hold: 96 Hour Involuntary Admission: No Coding Level of Care Code Acute Mother Tester for Pina Moncada
[2022-03-29 16:24] LABS: Glucose Point of Care 96 mg/dL (70-110)
--- NOTE | 2022-03-29 18:39 | PM.PN ---
Subjective Subjective: Ambulating in his room in similar visit. Reports he is doing well. Reports he would like to try to discharge straight to rehabilitation from neuropsychiatric unit for fear of relapse. States he knows he is at high chance of relapse if he just goes home from here. Reported part of the reason he has been missing insulin doses is due to having to drive up in the middle which acts as a trigger for him. Request for insulin pen prescription. Discussed with him will provide. Later on reported adamant about having more food, having his diet liberalized from consistent carbohydrate. Noted taking food from other patients' trays. Vitals/I&O/Wt Last Vital Signs Temp 98.8 F 03/29/22 14:00 Pulse 107 H 03/29/22 14:00 Resp 17 03/29/22 14:00 BP 114/88 03/29/22 14:00 Pulse Ox 98 03/29/22 14:00 Weight last 48 hrs Weight 77.02 kg Physical Exam Const: COMMON NORMALS: alert GENERAL APPEARANCE: cooperative ORIENTATION/CONSCIOUSNESS: Yes awake HENMT: COMMON NORMALS: normocephalic, EAC's normal, Normal external nose present and moist oral mucous membranes HEAD & SCALP: normocephalic NOSE: Normal external nose present EXTERNAL AUDITORY CANAL: EAC's normal TEETH & GINGIVA: Yes poor dentition Neck/C-Spine: COMMON NORMALS: no meningeal signs Chest: CHEST: Yes Symmetrical chest wall rise Resp: COMMON NORMALS: clear to auscultation bilaterally AUSCULTATION: clear to auscultation bilaterally Cardio: COMMON NORMALS: regular rate, regular rhythm and No murmurs present (Cardio) RATE: regular rate RHYTHM: regular rhythm GI: COMMON NORMALS: Normal to inspection, nondistended, normoactive bowel sounds present Extremity: COMMON NORMALS: no pedal edema Neuro: COMMON NORMALS: moves all extremities SENSORIUM/ORIENTATION: Yes alert MENINGEAL SIGNS: Yes no meningeal signs Psych: COMMON NORMALS: mental status grossly normal Skin: COMMON NORMALS: no wounds RASHES: no rashes Data : 03/24/22 14:05 03/24/22 14:05 A&P Assessment and plan (1) Type 1 diabetes mellitus: Last night blood glucose was low, 69. Discussed with him. Discussed stop nighttime Lantus doses, decrease morning dose to 22. Continue low-dose sliding scale. Request for plan due to insulin needles acting as IVDU trigger. Prescriptions provided. Continued on consistent carbohydrate diet, but later adamant about having it liberalized, having more fluid. At risk of leaving AMA. Diet changed to regular. Status: Acute (2) Depression: Management as per psychiatry team. Status: Acute (3) Methamphetamine use disorder, severe: He is planning to proceed with rehabilitation after discharge. Status: Acute (4) Suicidal ideations: Status: Acute (5) Hypertension: Status: Acute (6) History of coronary artery disease: Status: Acute Plan History of hypoglycemia resulting in intubation and severe seizures. Attestations Medical Necessity Statement*: Continue psychiatric care. Coding Level of Care Code Acute Gas System Operator for Pina Moncada Diagnoses Depression F32.A Methamphetamine use disorder, severe F15.20 Suicidal ideations R45.851 Type 1 diabetes mellitus E10.9 Hypertension I10 History of coronary artery disease Z86.79
[2022-03-29 20:20] LABS: Glucose Point of Care 360 mg/dL (70-110)
[2022-03-29 20:29] VITALS: BP 149/86; PULSE 90; RESP 17; TEMP 36.6; O2SAT 93
[2022-03-29] MEDS: quetiapine 100 mg Tablet 300 MG PO (20:36)
[2022-03-29] MEDS: atorvastatin 40 mg Tablet PO (20:36)
[2022-03-30 06:00] VITALS: BP 131/90; PULSE 108; RESP 16; TEMP 36.5; O2SAT 98
[2022-03-30] MEDS: psyllium powder Pkt 1 PACKET PO (06:23)
[2022-03-30 06:43] LABS: Glucose Point of Care 176 mg/dL (70-110)
[2022-03-30] MEDS: citalopram 20 mg Tablet 40 MG PO (08:30)
[2022-03-30] MEDS: insulin lispro 100 unit/1 mL SUBCUT ×4 (08:31→20:52)
[2022-03-30] MEDS: gabapentin 300 mg Capsule PO ×3 (08:31→20:52)
[2022-03-30] MEDS: aspirin 81 mg EC Tablet PO (08:31)
[2022-03-30] MEDS: BuSPIRONE 10 mg Tablet 15 MG PO ×3 (08:31→20:52)
[2022-03-30] MEDS: simethicone 80 mg Chew PO ×2 (10:45→20:52)
[2022-03-30] MEDS: insulin glargine 100 units/1 mL 22 UNIT SUBCUT (10:45)
[2022-03-30] MEDS: hyDROXYzine 25 mg Capsule 50 MG PO (10:46)
--- NOTE | 2022-03-30 11:17 | W.PM.NPUPNS ---
Subjective NPU Subjective: He is doing fairly well. He said that the Seroquel 300 mg at bedtime works well for him. He slept until 4:00 this morning. He said that the voices are muffled and improving. He said that the Metamucil seems to be helping to curb his hunger somewhat. He is still convinced his appetite is not increased with the Seroquel. He is going [facility]. He has a bed date for a rehab facility in [place] for April 07. He was cautioned that he needs to behave himself or he will get kicked out of the homeless senior living. He has at times become belligerent when he does not get his food that he wants. Mental Status Exam MSE Comments: This is a well-nourished well-developed white male in scrubs with limited grooming and eye contact.? No abnormal movements.? Psychomotor activity is normal.? Pleasant and cooperative with exam in no distress.? Speech was? normal rate and volume.? Mood good, affect euthymic.? Thought process organized.? Thought content: Patient denied homicidal or suicidal ideation, there are no delusions reported or noted, he reports auditory but they are improving, no visual hallucinations.? Attention and concentration were limited and memory was reliable for the most part but none were formally tested.? He is alert and oriented x3.? Insight and judgment improving impulse control impaired. Cognition: Patient Appearance: Disheveled/Poor Hygiene Patient Orientation (long list): Person, Place, Name, Age and Birthday Comprehension Ability: No Impairment Hallucination Type: Auditory Delusion Description: Not Present Thought Process: Appropriate Affect: Affect Description: Calm Behavior: Patient Behavior: Cooperative Speech Pattern: Clear Vitals/I&O/Wt Last Vital Signs Temp 97.7 F 03/30/22 06:00 Pulse 108 H 03/30/22 06:00 Resp 16 03/30/22 06:00 BP 131/90 03/30/22 06:00 Pulse Ox 98 03/30/22 06:00 Data NPU : 03/24/22 14:05 03/24/22 14:05 A&P Assessment and plan (1) Depression: Status: Acute (2) Methamphetamine use disorder, severe: Status: Acute (3) Suicidal ideations: Status: Acute (4) Type 1 diabetes mellitus: Status: Acute (5) Hypertension: Status: Acute (6) History of coronary artery disease: Status: Acute Plan This is a 41-year-old white male with a long history of mental health and addiction issues who presents with significant morbidities and difficulties with his blood sugars endorsing suicidality with limited interaction.? He reports auditory hallucinations and anxiety are increasing despite the methamphetamine getting out of his system. 1.? Continue current medication.? BuSpar was increased to 15 mg 3 times daily.? Change Seroquel to 300 mg at bedtime.? Increase Metamucil to after breakfast and lunch. 3.? Encourage individual, group and milieu therapies. 4.? Encourage sober living treatment after discharge at the highest level of care to which he is willing to commit. 5.? Appreciate hospitalist consult will follow for recommendations and follow as indicated. Involuntary Hold Information 96 Hour Hold: 96 Hour Involuntary Admission: No Attestations NPU Medical Necessity Statement*: Inpatient hospitalization is medically necessary and the clinically appropriate intervention at this time. We will initiate medications and make changes as indicated. Coding Level of Care Code Acute Life Skills Worker for Pina Moncada Diagnoses Depression F32.A Methamphetamine use disorder, severe F15.20 Suicidal ideations R45.851 Type 1 diabetes mellitus E10.9 Hypertension I10 History of coronary artery disease Z86.79
[2022-03-30 11:36] LABS: Glucose Point of Care 246 mg/dL (70-110)
--- NOTE | 2022-03-30 12:56 | P.NPUDS_ITS ---
Diagnoses at Discharge Discharge Diagnosis (1) Depression: Status: Acute (2) Methamphetamine use disorder, severe: Status: Acute (3) Suicidal ideations: Status: Acute (4) Type 1 diabetes mellitus: Status: Acute (5) Hypertension: Status: Acute (6) History of coronary artery disease: Status: Acute Reason for Visit Reason for Visit: Psych Brief History: History of Present Illness Stan Collazo is a 41 year old male who presented to the outside hospital with reports of struggling with type 1 diabetes, polysubstance abuse, coronary artery disease, anemia, and hypertension with suicidal ideation.? He was endorsing worsening stressors in life and people not wanting him around.? He is about jumping out of traffic to kill himself.? Ultimately after significant diffi culties to stabilize his blood sugar he was transferred to [facility] and admitted to the neuropsychiatric unit for definitive treatment of those issues.? Upon admission he had significant blood sugar difficulties and hospitalist consult was requested for appropriate management of his medical comorbidities.? He was a fairly poor historian and was not on much more than yes no answers to this health underwriter's questions.? He was also somewhat somnolent and challenging to continue to arouse to get additional answers.? He did endorse having significant psychiatric history with multiple inpatient hospitalizations in the past but none at this facility.? He reports that suicidal ideation is generally the reason for him presenting.? He endorses smoke about half pack of cigarettes a day but denied any additional active addiction.? He is currently on medication.? Review of the chart of the outside hospital does identify methamphetamine being positive on his UDS, as likely is leading to his level of hypersomnolence.? He did have moments of unresponsiveness and did briefly get into the outside hospital. Hospital Course Hospital Course He slowly acclimated to the individual, group and milieu therapies provided. He was continued on his outpatient medications insulin was adjusted as needed. Seroquel was increased to 300 mg at bedtime to decrease his voices. He said that was effective. He tolerated these doses and showed steady improvement during his stay. He was able to contract for safety outside hospital prior to discharge. During the hospitalization, patient had routine laboratory studies which were within normal limits except for few outliers. Additionally there was a general medical evaluation which was also within normal limits and revealed no new acute processes. Discharge Summary: At the time of discharge, lethality was denied and psychosis was resolving. Mood and anxiety were well managed. Patient endorsed a plan to follow-up with the aftercare recommendations of the treatment team. Patient was evaluated and deemed to be absent credible lethality, and had achieved the maximum benefit from an inpatient hospitalization, so was discharged. Involuntary Hold Information 96 Hour Hold: 96 Hour Involuntary Admission: No Mental Status Exam MSE Comments: This is a well-nourished well-developed white male in scrubs with limited grooming and eye contact.? No abnormal movements.? Psychomotor activity is normal.? Pleasant and cooperative with exam in no distress.? Speech was? normal rate and volume.? Mood good, affect euthymic.? Thought process organized.? Thought content: Patient denied homicidal or suicidal ideation, there are no delusions reported or noted, he reports auditory but they are improving, no visual hallucinations.? Attention and concentration were limited and memory was reliable for the most part but none were formally tested.? He is alert and oriented x3.? Insight and judgment improving impulse control impaired. Cognition: Patient Appearance: Disheveled/Poor Hygiene Patient Orientation (long list): Person, Place, Name, Age and Birthday Comprehension Ability: No Impairment Hallucination Type: Auditory Delusion Description: Not Present Thought Process: Appropriate Affect: Affect Description: Calm Behavior: Patient Behavior: Cooperative Speech Pattern: Clear Discharge Data Studies Completed and Pending: Laboratory Results WBC 8.3 10^3/uL (4.0- 10.0) 03/24/22 14:05 RBC 3.79 10^6/uL (4.1 -5.3) L 03/24/22 14:05 Hgb 10.3 g/dL (11.7-1 6.6) L 03/24/22 14:05 Hct 32.4 % (42.0-52.0 ) L 03/24/22 14:05 MCV 85.5 fl (80-94) 03/24/22 14:05 MCH 27.2 pg (28.0-34. 0) L 03/24/22 14:05 MCHC 31.8 g/dL (30.0-3 6.0) 03/24/22 14:05 RDW 14.4 % (12.1-15.1 ) 03/24/22 14:05 Plt Count 390 10^3/cmm (130 -400) 03/24/22 14:05 MPV 10.5 fL (7.4-10.4 ) H 03/24/22 14:05 Neut % (Auto) 56.4 % 03/24/22 14:05 Lymph % (Auto) 31.7 % 03/24/22 14:05 [place] % (Auto) 9.0 % 03/24/22 14:05 Eos % (Auto) 1.6 % 03/24/22 14:05 Baso % (Auto) 0.8 % 03/24/22 14:05 Neut # (Auto) 4.67 10^3/uL (1.8 -7.7) 03/24/22 14:05 Lymph # (Auto) 2.6 10^3/uL (0.8- 4.8) 03/24/22 14:05 [place] # (Auto) 0.8 10^3/uL (0.2- 0.9) 03/24/22 14:05 Eos # (Auto) 0.1 10^3/uL (0.0- 0.8) 03/24/22 14:05 Baso # (Auto) 0.1 10^3/uL (0.0- 0.1) 03/24/22 14:05 Nucleated RBC % (a uto) 0 % 03/24/22 14:05 Nucleated RBCs # 0.0 /100WBC 03/24/22 14:05 Sodium 132 mmol/L (136-1 45) L 03/24/22 14:05 Potassium 3.9 mmol/L (3.5-5 .1) 03/24/22 14:05 Chloride 96 mmol/L (98-107 ) L 03/24/22 14:05 Carbon Dioxide 24 mmol/L (22-29) 03/24/22 14:05 Anion Gap 15.9 (5-19) 03/24/22 14:05 BUN 33 mg/dL (6-20) H 03/24/22 14:05 Creatinine 1.3 mg/dL (0.7-1. 2) H 03/24/22 14:05 GFR Calculation 61.5 mL/min (90-1 30) L 03/24/22 14:05 Glucose 295 mg/dL (65-115 ) H 03/24/22 14:05 POC Glucose 246 mg/dL (70-110 ) H 03/30/22 11:19 Calculated Osmolal ity 292 mOsm/kg (285- 295) 03/24/22 14:05 Calcium 8.7 mg/dL (8.5-10 .5) 03/24/22 14:05 Total Bilirubin 0.2 mg/dL (0.15-1 .2) 03/24/22 14:05 AST 15 U/L (0-40) 03/24/22 14:05 ALT 23 U/L (0-41) 03/24/22 14:05 Alkaline Phosphata se 131 IU/L (40-130) H 03/24/22 14:05 Total Protein 6.5 g/dL (6.6-8.7 ) L 03/24/22 14:05 Albumin 2.8 g/dL (3.5-5.2 ) L 03/24/22 14:05 Globulin 3.7 g/dL (1.3-4.6 ) 03/24/22 14:05 Hepatitis A IgM Ab TNP 03/22/22 11:07 Hep Bs Antigen Non-reactive (No nreactive) 03/22/22 11:07 Hep B Core IgM Ab Non-reactive (No nreactive) 03/22/22 11:07 Hepatitis C Antibo dy Non-reactive (No nreactive) 03/22/22 11:07 HIV 1&2 Ab & HIV 1 Ag Non-reactive (No n-Reactiv) 03/24/22 14:05 HIV 1&2 Antibody Non-reactive (No n-Reactiv) 03/24/22 14:05 Misc Test Referenc e See comment 03/24/22 14:05 Vitals: Last Vital Signs Temp 97.7 F 03/30/22 06:00 Pulse 108 H 03/30/22 06:00 Resp 16 03/30/22 06:00 BP 131/90 03/30/22 06:00 Pulse Ox 98 03/30/22 06:00 Discharge Plan Discharge Patient Disposition: Home Condition: Stable Prescriptions: New Lantus Solostar U-100 Insulin 100 unit/mL (3 mL) insulin pen 22 unit SUBCUT DAILY Qty: 15 3RF insulin aspart U-100 [Novolog PenFill U-100 Insulin] 100 unit/mL cartridge See Rx Instructions .ROUTE .COMPLEX PRN (Reason: hyperglycemia) Qty: 15 3RF Rx Instructions: ACHS PRN Glucose: 141-180 - 2 units 181-220 - 3 221-260 - 4 261-300 - 5 301-350 - 6 351-400 - 7 >400 - 8 units buspirone 10 mg Tablet 15 mg PO TID 30 Days Qty: 135 1RF quetiapine 100 mg Tablet 300 mg PO BEDTIME 30 Days Qty: 30 1RF Continued furosemide 40 mg tablet 40 mg PO BID 30 Days Qty: 60 1RF atorvastatin 40 mg tablet 40 mg PO BEDTIME 30 Days Qty: 30 1RF carvedilol 25 mg tablet 25 mg PO BID 30 Days Qty: 60 1RF citalopram 40 mg tablet 40 mg PO DAILY 30 Days Qty: 30 1RF meloxicam 15 mg tablet 15 mg PO DAILY 30 Days Qty: 30 1RF aspirin 81 mg tablet,delayed release (DR/EC) 81 mg PO DAILY 30 Days Qty: 30 0RF gabapentin 300 mg capsule 300 mg PO TID 30 Days Qty: 90 1RF simethicone 80 mg tablet,chewable 80 mg PO BID 30 Days Qty: 60 1RF Discontinued buspirone 15 mg tablet 15 mg PO BID 0RF Lantus U-100 Insulin 100 unit/mL solution 15 unit SUBCUT DAILY 0RF quetiapine 200 mg tablet 200 mg PO BEDTIME 0RF Discharge Orders: Discharge Order (Routine); Ordered 03/30/22 Ordered By: Joey Appiah Referrals: [facility] [Other] [facility] [Other] [facility] Velazquez [Other] (After rehabilitation) [facility] [Other] (Impatient check in will be 03/31/22. ) [facility] [Other] Discharge Diet: Diabetic Discharge Activity: Resume usual activity Patient Instructions: Insulin Aspart, Recombinant (By injection), Insulin Glargine (By injection), How to Give an Insulin Injection (GEN), Insulin Pens (GEN), What to Do if Your Blood Sugar is Low (GEN), Diabetes and Nutrition (GEN), Type 2 Diabetes Management for Adults (GEN) Discharge Attestations NPU Time Spent in Discharge Care*: greater than 30 min Specific Discharge Activities: Specific discharge activities: educating patient, discussing with caseworker intake/social workers/dc planners, documenting/other paperwork and evaluating patient/reviewing data Coding Level of Care Code Acute Chg FW DC note Diagnoses Depression F32.A Methamphetamine use disorder, severe F15.20 Suicidal ideations R45.851 Type 1 diabetes mellitus E10.9 Hypertension I10 History of coronary artery disease Z86.79
[2022-03-30 13:32] VITALS: BP 131/90; PULSE 108; RESP 16; TEMP 36.5; O2SAT 98
[2022-03-30 14:00] VITALS: BP 176/88; PULSE 108; RESP 16; TEMP 36.7; O2SAT 99
[2022-03-30] MEDS: OLANZapine 5 mg ODT PO (14:17)
--- NOTE | 2022-03-30 14:35 | PC.SOCIAL ---
Patient did not attend group.
[2022-03-30 16:26] LABS: Glucose Point of Care 140 mg/dL (70-110)
[2022-03-30 20:44] LABS: Glucose Point of Care 171 mg/dL (70-110)
[2022-03-30] MEDS: atorvastatin 40 mg Tablet PO (20:51)
[2022-03-30] MEDS: quetiapine 100 mg Tablet 300 MG PO (20:52)
[2022-03-30 21:10] VITALS: BP 150/89; PULSE 97; RESP 17; TEMP 36.7; O2SAT 99
[2022-03-31] MEDS: hyDROXYzine 25 mg Capsule 50 MG PO (05:12)
--- NOTE | 2022-03-31 05:12 | PC.NURSE ---
PRN ADMIN Patient c/o anxiety related to discharge this am, PRN hydroxyzine given as ordered.
[2022-03-31 06:00] VITALS: BP 134/61; PULSE 103; RESP 16; TEMP 36.2; O2SAT 98
[2022-03-31] MEDS: OLANZapine 5 mg ODT PO (06:23)
[2022-03-31 06:26] LABS: Glucose Point of Care 135 mg/dL (70-110)
== END 2022-03-31 07:28 | DRG 881 ==
PROVIDERS: Admitting Provider Psychiatry & Neurology Psychiatry; Visit Provider Psychiatry & Neurology Psychiatry
DX: F32.A Depression, unspecified (principal); R45.851 Suicidal ideations; F15.20 Other stimulant dependence, uncomplicated; E10.65 Type 1 diabetes mellitus with hyperglycemia; I25.10 Atherosclerotic heart disease of native coronary artery without angina pectoris; Z95.5 Presence of coronary angioplasty implant and graft; D64.9 Anemia, unspecified; I10 Essential (primary) hypertension; Z79.82 Long term (current) use of aspirin
CPT/HCPCS: 36415; 36416; 80048; 80053; 80074; 82962; 85025; 87806; 96372; 97150; 97165; J1815 ×2